=== PATIENT | female | born 1960 | race Caucasian/White ===

== ENCOUNTER 2016-07-13 09:07 | Day surgery (SDC) | payer BC, MEDICARE ==
[~2016-07-13 09:07] MED LIST: Lactated Ringers 1,000 ML IV SCH; Sodium Chloride 0.9% 5 ML Syringe FLUSH PRN
[2016-07-13] MEDS ORDERED: Propofol 200 MG/20 ML SDV ONE ×6 (09:15→10:59)
[2016-07-13] MEDS ORDERED: fentaNYL 100 MCG/2 ML SDV ONE (09:15)
[2016-07-13] MEDS ORDERED: Midazolam 1 MG/ML 2 ML SDV ONE (09:15)
[2016-07-13] MEDS ORDERED: Bupivacaine 0.5% 30 ML SDV ONE (09:24)
[2016-07-13] MEDS ORDERED: EPINEPHrine 1:10,000 1 MG/10 ML Syringe ONE ×2 (09:24→11:04)
[2016-07-13] MEDS ORDERED: Propofol 200 MG/20 ML SDV IV ONE (10:28)
[2016-07-13] MEDS ORDERED: fentaNYL 100 MCG/2 ML SDV IV ONE (10:28)
[2016-07-13] MEDS ORDERED: Midazolam 1 MG/ML 2 ML SDV IV ONE (10:28)
[2016-07-13] MEDS ORDERED: Bupivacaine 0.5% 30 ML SDV INFILT ONE (12:09)
--- NOTE | 2016-07-13 12:27 | PCM.OPNOTE ---
- General Post-Op/Procedure Note Date of Surgery/Procedure: 07/13/16 Findings: Colonoscopy and polypectomies. Anesthesia Technique: MAC Primary Surgeon: Silvia Wu Complications: None Condition: Good Free Text/Narrative:: INFORMED CONSENT: Patient is here today for elective colonoscopy. All aspects of this procedure have been discussed with the patient. All possible complications also, including possibility of perforation, infection, pain, bleeding and unknown complications. In the event of perforation patient may need to have abdominal exploration, colon resection, colostomy and even was discussed. Anesthetic complications were handled by anesthesia department. The patient understands fully well. Patient did not have any further questions for me at the end of my interview. The patient wishes for me to proceed. PREOPERATIVE DIAGNOSIS/INDICATIONS: [previous history of colon polyps] POSTOPERATIVE DIAGNOSIS: [multiple recurrent colon polyps] INSTRUMENT USED: [place] videocolonoscope. ASA CLASSIFICATION: [2] ANESTHESIA: Continuous EKG, oximetry and intermittent blood pressure and respiratory monitoring were performed throughout the procedure. IV Versed and Fentanyl were administered. PROCEDURE PERFORMED: Colonoscopy POSITIONS OF PATIENT: Left lateral. RECTUM: One small polyp was removed from the rectum using the cold biopsy forceps.. SIGMOID COLON: 3 polyps were removed using a combination of cold biopsy forceps ,injection, loop and electrocautery. DESCENDING COLON: 2 polyps were removed using the lop and electrocautery. SPLENIC FLEXURE: Normal. TRANSVERSE COLON: One polyp was removed using the loop and electrocautery. . HEPATIC FLEXURE: Normal. ASCENDING COLON: Normal. CECUM: Normal. ILEOCECAL VALVE: Normal. BIOPSY: None. TOLERANCE: Excellent. COMPLICATIONS: None. Total polyps removed were 7.
[2016-07-13 13:43] VITALS: BP 150/92
--- NOTE | 2016-07-14 08:45 | OR ---
DATE OF SURGERY: 07/13/2016 SURGEON: Silvia Wu MD The patient is 56-year-old at the [facility]. PREOPERATIVE DIAGNOSIS: Previous history of multiple colon polyps. FINAL DIAGNOSIS: Multiple colon polyps, seven in number, at 10, 22, 25, 27, 40, 48, and 70 cm. PROCEDURE: Informed consent was obtained from the patient regarding this procedure. All possible complications were thoroughly discussed. The patient understands and wishes to proceed. These include infection, pain, bleeding, perforation and other unknown complications. Instrument used was Olympus video colonoscope. TECHNIQUE: Continuous EKG, oximetry monitoring and intermittent blood pressure and respiratory monitoring were performed throughout the procedure. The Olympus videocolonoscope was introduced through the rectum and advanced all the way up to the cecum. There was inadequate prep at the cecum and the transverse colon. An accurate examination of the mucosa was not completely possible. However, as the scope was being withdrawn, we found seven polyps at 70, 48, 40, 27, 25, 22 and 10 cm from the anal margin. These polyps were removed using a combination of cold biopsy techniques, injection of epinephrine 1:10,000 and also loop and electrocautery. The polyps were retrieved and sent for histology. For the polyps in the rectum and the sigmoid colon, we used resolution clips to prevent any post colonoscopy bleeding. The scope was withdrawn. In the rectum the retroflexion technique was employed and no further polyps were discovered. The scope was totally retroflexed with no additional findings.. There were no complications. The patient tolerated the procedure well. She was transferred to the recovery room in excellent condition. /[id number]/MODL Preoperative diagnosis: Verrucous lesion of the right lower eyelid. 4 mm. Postoperative diagnosis: As above. Procedure performed: Excision of lesion of the right lower eyelid. Informed consent was obtained from the patient regarding this procedure. Should she was given IV sedation and the right lower eyelid was slightly everted. We then infiltrated this area with 1% Xylocaine with epinephrine. We then used the "hotsy" cautery and excised the lesion carefully. The base was lightly cauterized to prevent a recurrence. The patient tolerated the procedure well. A sterile Band-Aid is applied. Size was 4 mm. Follow-up in 10 days. MTDD
== END 2016-07-13 13:30 | disposition home or self-care (01) ==
LOC: KA.SDS 09:07
PROVIDERS: ATTEND Family Medicine
PROC: 0DBN8ZX Excision of Sigmoid Colon, Via Natural or Artificial Opening Endoscopic, Diagnostic (ICD-10-PCS; principal; 2016-07-13)
PROC: 0DBL8ZX Excision of Transverse Colon, Via Natural or Artificial Opening Endoscopic, Diagnostic (ICD-10-PCS; 2016-07-13)
PROC: 0DBM8ZX Excision of Descending Colon, Via Natural or Artificial Opening Endoscopic, Diagnostic (ICD-10-PCS; 2016-07-13)
PROC: 0DBP8ZX Excision of Rectum, Via Natural or Artificial Opening Endoscopic, Diagnostic (ICD-10-PCS; 2016-07-13)
DX: D12.7 Benign neoplasm of rectosigmoid junction (principal); D12.4 Benign neoplasm of descending colon; D12.5 Benign neoplasm of sigmoid colon; J45.909 Unspecified asthma, uncomplicated; E78.00 Pure hypercholesterolemia, unspecified; Z86.718 Personal history of other venous thrombosis and embolism; Z79.01 Long term (current) use of anticoagulants; D68.62 Lupus anticoagulant syndrome; I10 Essential (primary) hypertension; Z79.899 Other long term (current) drug therapy; F17.210 Nicotine dependence, cigarettes, uncomplicated
CPT/HCPCS: 36415; 45380; 45384; 85610; 88305; J0171; J2250; J2704; J3010; J7120

== ENCOUNTER 2018-12-19 14:15 | Emergency (ER) | payer BC, MEDICARE ==
[2018-12-19] MEDS: Nitroglycerin 0.4 MG Tab.SL SL PRN ×3 (14:30→15:05)
[2018-12-19] MEDS ORDERED: Sodium Chloride 0.9% 1,000 ML IV ONE (14:31)
--- NOTE | 2018-12-19 14:31 | EDM.PDOC ---
ED HPI GENERAL MEDICAL PROBLEM - General Time Seen by Provider: 12/19/18 14:15 Source of Information: Reports: Patient, Significant Other - History of Present Illness INITIAL COMMENTS - FREE TEXT/NARRATIVE: Patient presents with chest pain. She says it is pressure 8-9/10 and started last night. After awhile it subsided but never really went away. Around 1300 today it became worse again at 8-9 just like last night. Today she also has pain in left arm, nausea and diaphoresis. Some dyspnea but she has asthma ( which hasn't been bad lately). She appears quite uncomfortable. Denies any history of AR, stents, known blockage, diabetes. She is on warfarin and can't take aspirin due to "leaky vessels in her legs". The warfarin is for Lupus anticoagulation which was diagnosed in 2006. Her INR range is 2.5-3.5. Left Chest Pain Score (Numeric/FACES): 10 - Related Data Allergies Allergy/AdvReac Type Severity Reaction Status Date / Time adhesive Allergy Rash Verified 07/13/16 09:23 sulfamethoxazole Allergy Nausea and Verified 07/13/16 09:23 [From Bactrim] Vomiting trimethoprim [From Bactrim] Allergy Nausea and Verified 07/13/16 09:23 Vomiting Home Meds: Home Meds Acetaminophen [Tylenol Arthritis] 650 mg PO Q8HR PRN 07/12/16 [History] Albuterol [Ventolin HFA] 1 - 2 puff INH Q4H PRN 07/12/16 [History] Lisinopril 10 mg PO DAILY 07/12/16 [History] Omeprazole 20 mg PO DAILY PRN 07/12/16 [History] Triamcinolone Acetonide [Triamcinolone Acetonide 0.1% Crm] 15 gm TOP BID [History] Warfarin [Coumadin] 5 mg PO ASDIRECTED 07/12/16 [History] Warfarin Sodium [Coumadin] 7.5 mg PO ASDIRECTED 07/13/16 [History] Loratadine/Pseudoephedrine [Claritin-D 24 Hour Tablet] 1 each PO DAILY 12/19/18 [History] Past Medical History HEENT History: Reports: Allergic Rhinitis Cardiovascular History: Reports: High Cholesterol, AR, Other (See Below) Other Cardiovascular History: vericose veins Respiratory History: Reports: Asthma Gastrointestinal History: Reports: Other (See Below) Other Gastrointestinal History: rectal bleeding, perirectal abscess [employer] History: Reports: Musculoskeletal History: Reports: Back Pain, Chronic, Other (See Below) Other Musculoskeletal History: muscle spasms Immunologic History: Reports: Other (See Below) Other Immunologic History: Lupus Dermatologic History: Reports: Other (See Below) Other Dermatologic History: skin lesions, ulcer, edema to bilat legs, abscess - Past Surgical History Female Surgical History: Reports: Hysterectomy Social & Family History - Family History Family Medical History: Noncontributory - Caffeine Use Caffeine Use: Reports: Soda ED ROS GENERAL - Review of Systems Review Of Systems: See Below Constitutional: Reports: Malaise, Diaphoresis. Denies: Fever HEENT: Reports: No Symptoms Respiratory: Reports: Shortness of Breath. Denies: Cough Cardiovascular: Reports: Chest Pain. Denies: Lightheadedness, Syncope GI/Abdominal: Reports: Nausea. Denies: Abdominal Pain, Diarrhea, Vomiting : Reports: No Symptoms Musculoskeletal: Reports: Neck Pain, Shoulder Pain, Arm Pain (left), Back Pain ( chronic) Skin: Denies: Cyanosis, Jaundice, Mottled, Pallor, Diaphoresis Neurological: Denies: Confusion, Dizziness, Headache, Seizure, Syncope, Trouble Speaking Psychiatric: Denies: Agitation, Anxiety ED EXAM, GENERAL - Physical Exam Exam: See Below Exam Limited By: No Limitations General Appearance: Alert, WD/WN, Moderate Distress Eye Exam: Bilateral Eye: EOMI, Normal Inspection, PERRL Ears: Normal External Exam, Hearing Grossly Normal Nose: Normal Inspection, No Blood Throat/Mouth: Normal Inspection, Normal Lips, Normal Voice, No Airway Compromise Head: Atraumatic, Normocephalic Neck: Normal Inspection, Supple, Non-Tender, Full Range of Motion. No: Carotid Bruit Respiratory/Chest: No Respiratory Distress, Lungs Clear, Normal Breath Sounds, No Accessory Muscle Use Cardiovascular: Normal Peripheral Pulses, Regular Rate, Rhythm, No Edema, No Gallop, No JVD, No Murmur Peripheral Pulses: 2+: Carotid (L), Carotid (R), Radial (L), Radial (R), Dorsalis Pedis (L), Dorsalis Pedis (R) Back Exam: Normal Inspection, Full Range of Motion Extremities: Normal Inspection, Normal Range of Motion, Non-Tender, No Pedal Edema Neurological: Alert, Oriented, Normal Cognition, No Motor/Sensory Deficits Psychiatric: Normal Affect, Normal Mood Skin Exam: Warm, Dry, Intact, Normal Color, No Rash Course - Vital Signs Last Recorded V/S: Last Vital Signs Temp 97.9 F 12/19/18 15:21 Pulse 73 12/19/18 15:21 Resp 18 12/19/18 15:21 BP 136/68 12/19/18 15:21 Pulse Ox 93 L 12/19/18 15:21 - Orders/Labs/Meds Orders: Active Orders 24 hr Category Date Time Status EKG Documentation Completion [RC] ASDIRECTED Care 12/19/18 14:23 Active Nitroglycerin/D5W [Nitroglycerin 50 MG/D5W 250 ML] Med 12/19/18 15:45 Ordered 50 mg in 250 ml IV TITRATE Medication Orders Nitroglycerin/Dextrose (Nitroglycerin 50 Mg/D5w 250 Ml) 50 mg in 250 mls @ 1.5 mls/hr IV TITRATE BREA; Protocol Labs: Laboratory Tests 12/19/18 12/19/18 12/19/18 Range/Units 14:20 14:20 15:00 WBC 11.76 H (5.00-10.00) 10^3/uL RBC 5.15 (3.80-5.50) 10^6/uL Hgb 16.1 H (12.0-16.0) g/dL Hct 47.0 (37.0-47.0) % MCV 91.3 (82.0-92.0) fL MCH 31.3 H (27.0-31.0) pg MCHC 34.3 (32.0-36.0) g/dL RDW 13.6 (11.5-14.5) % Plt Count 352 (150-400) 10^3/uL MPV 9.4 (7.4-10.4) fL Immature Gran % (Auto) 0.3 (0.0-5.0) % Neut % (Auto) 61.0 (50.0-70.0) % Lymph % (Auto) 31.3 (20.0-40.0) % [place] % (Auto) 6.5 (2.0-8.0) % Eos % (Auto) 0.6 L (1.0-3.0) % Baso % (Auto) 0.3 (0.0-1.0) % Immature Gran # (Auto) 0.04 (0.00-0.50) 10^3/uL Neut # (Auto) 7.18 H (2.50-7.00) 10^3/uL Lymph # (Auto) 3.68 (1.00-4.00) 10^3/uL [place] # (Auto) 0.76 (0.10-0.80) 10^3/uL Eos # (Auto) 0.07 L (0.10-0.30) 10^3/uL Baso # (Auto) 0.03 (0.00-0.10) 10^3/uL PT 38.3 H D (8.9-11.4) SEC INR 3.9 H (0.9-1.1) Sodium 147 H (136-145) mmol/L Potassium 5.9 H (3.3-5.3) mmol/L Chloride 100 (98-115) mmol/L Carbon Dioxide 25.5 (21.0-32.0) mmol/L Anion Gap 27.4 H (5-15) mmol/L BUN 17 (6-25) mg/dL Creatinine 0.66 (0.51-1.17) mg/dL Est Cr Clr Drug Dosing TNP Estimated GFR (MDRD) > 60 mL/min Glucose 110 H (75 - 99) mg/dL Calcium 10.6 H (8.7-10.3) mg/dL Troponin I 7.31 H* (0.00-0.070) ng/mL Meds: Medications Generic Name Dose Route Start Last Admin Trade Name Freq PRN Reason Stop Dose Admin Nitroglycerin/Dextrose 50 mg in 250 mls @ 1.5 mls/hr 12/19/18 15:45 Nitroglycerin 50 Mg/D5w 250 Ml IV TITRATE BREA Protocol 5 MCG/MIN Discontinued Medications Generic Name Dose Route Start Last Admin Trade Name Freq PRN Reason Stop Dose Admin Aspirin 324 mg 12/19/18 15:29 12/19/18 15:39 Aspirin PO 12/19/18 15:30 324 mg ONETIME ONE Administration Sodium Chloride 1,000 mls @ 999 mls/hr 12/19/18 14:31 12/19/18 14:45 Normal Saline IV 12/19/18 15:31 999 mls/hr .BOLUS ONE Administration Nitroglycerin 0.4 mg 12/19/18 14:31 12/19/18 15:05 Nitrostat SL 0.4 mg Q5M PRN Administration Chest Pain Nitroglycerin Confirm 12/19/18 14:32 12/19/18 15:15 Nitrostat Administered 12/19/18 14:33 Not Given Dose 0.4 mg .ROUTE .K-MED ONE - Re-Assessments/Exams Free Text/Narrative Re-Assessment/Exam: 12/19/18 14:40 EKG shows inverted T-waves in AVR V1, V2 and 1.5 mm of S-T depression in lead II ; and occasional PVCs and PACs. First Nitro took pain down from 8-9 to 4-5 per patient. Starting fluids and will recheck BP before giving another. 12/19/18 14:51 After second nitro the chest pain felt sharp for a couple seconds; the pressure is about 4/10 now. 12/19/18 15:22 Trop is 7.31. I discussed with patient and she would like to go to [facility] in [place]. I discussed with hospitalist, Dr. Nam, there who accepted but wants me to discuss with salesperson women's dresses also and I am now waiting on that call back. Also waiting on INR to know if we need heparin. Some question about whether we should go ahead with aspirin or not. 12/19/18 15:[address] Woods called back and wants the aspirin and also a nitro drip since pain is still there. Waiting on INR. They accepted for immediate transfer. Patient stable and feeling much better but pain still 4/10. 12/19/18 15:43 INR is 3.9 so don't need heparin. 12/19/18 16:10 EMS leaving with patient now and nitro drip is running. Patient stable. Departure - Departure Time of Disposition: 15:41 Disposition: DC/Tfer to Acute Hospital 02 Reason for Transfer *Q: Other Condition: Good Clinical Impression: NSTEMI (non-ST elevated myocardial infarction), Lupus anticoagulant disorder Referrals: Silvia Wu MD [Primary Care Provider] - - My Orders Last 24 Hours: My Active Orders 12/19/18 14:23 EKG Documentation Completion [RC] ASDIRECTED 12/19/18 15:45 Nitroglycerin/D5W [Nitroglycerin 50 MG/D5W 250 ML] 50 mg in 250 ml IV TITRATE - Assessment/Plan Last 24 Hours: My Active Orders 12/19/18 14:23 EKG Documentation Completion [RC] ASDIRECTED 12/19/18 15:45 Nitroglycerin/D5W [Nitroglycerin 50 MG/D5W 250 ML] 50 mg in 250 ml IV TITRATE
[2018-12-19] MEDS ORDERED: Nitroglycerin 0.4 MG Tab.SL ONE (14:32)
--- NOTE | 2018-12-19 14:57 | CR ---
[id number] RAD/RAD Chest PA or AP 1V EXAM: FRONTAL CHEST INDICATION: CHEST PAIN. COMPARISON: None. DISCUSSION: The heart is mildly enlarged with borderline central vascular congestion. No focal infiltrates are identified. IMPRESSION: 1. Borderline congestive heart failure. Jayjay Sheikh MD 12/19/18 [id number] Thank you for allowing us to participate in the care of your patient.
[2018-12-19 15:01] LABS: ANION GAP 27.4 mmol/L (5-15); CHLORIDE,CL 100 mmol/L (98-115); SODIUM,NA 147 mmol/L (136-145)
[2018-12-19] MEDS ORDERED: Aspirin 81 MG Tab.Chew PO ONE (15:29)
[2018-12-19 15:52] VITALS: BP 154/74; PULSE 69
== END 2018-12-19 16:10 ==
LOC: KA.ED 14:15
DX: I21.4 Non-ST elevation (NSTEMI) myocardial infarction (principal); M32.9 Systemic lupus erythematosus, unspecified; E78.00 Pure hypercholesterolemia, unspecified; J45.909 Unspecified asthma, uncomplicated; Z79.01 Long term (current) use of anticoagulants; Z79.899 Other long term (current) drug therapy; Z88.1 Allergy status to other antibiotic agents; Z88.2 Allergy status to sulfonamides; Z91.048 Other nonmedicinal substance allergy status
CPT/HCPCS: 36415; 71045; 80048; 84484; 85025; 85610; 93005; 99285; A9270; J7030